=== PATIENT | female | born 1985 | race African-American/Black ===

== ENCOUNTER 2018-10-20 18:31 | Inpatient (IN) | payer MEDICAID, OTHER ==
[~2018-10-20] VITALS: Ht 165.1 cm; Wt 45.8 kg
[2018-10-20 18:51] VITALS: BP 114/71
--- NOTE | 2018-10-20 18:54 | NUR ---
WHEEL CHAIR ASSISTED TO BED 2
--- NOTE | 2018-10-20 18:57 | NUR ---
BIB FAMILY WITH C/O MID ABDOMINAL PAIN RADIATING TO LT FLANK; DENIES N/V/D . DENIES N/V/D; SKIN IS PINK/WARM/DRY; AAOX4, LUNGS CLEAR BL; HR EVEN AND REGULAR; PT DENIES ANY FEVER, CP, SOB, OR COUGH AT THIS TIME; PATIENT STATES PAIN OF 10/10 AT THIS TIME; VSS; PATIENT POSITIONED FOR COMFORT; HOB ELEVATED; BEDRAILS UP X2; BED DOWN. ER MD MADE AWARE OF PT STATUS.
--- NOTE | 2018-10-20 19:09 | NUR ---
RECIEVED REPORT FROM EBENEZER PANG.
--- NOTE | 2018-10-20 19:24 | NUR ---
Patient being evaluated by physician at bedside.
[2018-10-20] MEDS ORDERED: NACL 0.9% 1,000 ML IV ONE (20:00)
[2018-10-20] MEDS ORDERED: MORPHINE SULFATE 4 MG/ML SYR IVP ONE (20:00)
--- NOTE | 2018-10-20 20:00 | NUR ---
PT IN BED RESTING WITH EYES OPEN. ABD PAIN 8. URINE COLLECTED. DR JO INFORMED. VSS. CONTINUE TO MONITOR.
[2018-10-20 20:21] LABS: BASOPHILS % (AUTO) 0.4 % (0.0-2.0); EOSINOPHILS % (AUTO) 0.4 % (0.0-4.0); HEMATOCRIT 40.4 % (36-48); HEMOGLOBIN 13.5 g/dL (12.0-16.0); LYMPHOCYTES # (AUTO) 1.5 K/uL (2.5-16.5); MEAN CORPUSCULAR HEMOGLOBIN 30 pg (27-31); MEAN CORPUSCULAR HGB CONC 33 g/dL (33-37); MEAN CORPUSCULAR VOLUME 90.9 fL (80-94); MONOCYTES # (AUTO) 0.4 K/uL (0.8-1.0); MONOCYTES % (AUTO) 4.2 % (1.7-9.3); NEUTROPHILS # (AUTO) 6.9 K/uL (1.8-7.7); PLATELET COUNT (AUTO) 180 K/uL (140-450); RED BLOOD CELL COUNT(AUTO) 4.44 MIL/uL (4.20-5.40); RED CELL DISTRIBUTION WIDTH 12.6 % (11.6-13.7); WHITE BLOOD COUNT (AUTO) 8.8 K/uL (4.8-10.8)
[2018-10-20 20:23] LABS: APPEARANCE,URINE HAZY (CLEAR); BILIRUBIN,URINE NEGATIVE (NEGATIVE); BLOOD, URINE LARGE (NEGATIVE); COLOR,URINE YELLOW (YELLOW); LEUKOCYTE ESTERASE ,URINE NEGATIVE (NEGATIVE); NITRITE, URINE NEGATIVE (NEGATIVE); UGLUCOSE NEGATIVE (NEGATIVE)
[2018-10-20 20:27] LABS: RBC,URINE 50-80 /HPF (0-5)
[2018-10-20 20:34] LABS: ANION GAP 12.1 (8-16); CARBON DIOXIDE 25.7 mmol/L (21-32); CREATININE 0.6 mg/dL (0.6-1.3); POTASSIUM 3.8 mmol/L (3.5-5.1)
[2018-10-20 20:40] LABS: ALBUMIN 3.9 g/dL (3.4-5.0); TOTAL BILIRUBIN 0.4 mg/dL (0.0-1.0)
[2018-10-20] MEDS ORDERED: cefTRIAXone 2,000 MG in DEXTROSE 5% 100 ML IV ONE (20:55)
[2018-10-20] MEDS ORDERED: cefTRIAXone 2,000 MG VIAL ONE (21:13)
[2018-10-20] MEDS ORDERED: FAMOTIDINE 20 MG/2 ML VIAL IVP ONE (21:55)
--- NOTE | 2018-10-20 23:33 | NUR ---
REPORT GIVEN AND CARE TRANSFERED TO SLAVA PANG ROOM 119B. TRANSFERED VIA RTROY WITH VSS.
[2018-10-20 23:35] VITALS: BP 106/72
--- NOTE | 2018-10-20 23:35 | NUR ---
PT ARRIVED TO UNIT VIA WHEELCHAIR. RECEIVED REPORT FROM ER NURSE RONALD-RN AT BEDSIDE. PT AMBULATED TO BED. AOX4, ON ROOM AIR WITH IV SITE ON LEFT AC #20G. ORIENTED PT TO BEDROOM, CALL LIGHT, RESTROOM AND PT VERBALIZED UNDERSTANDING. NO S/S OF RESPIRATORY DISTRESS OR DISCOMFORT NOTED AT THIS TIME. VITAL SIGNS TAKEN AND MRSA SWAB COLLECTED. BED IN LOWEST POSITION, BED BREAKS ON, BOTH SIDE RAILS UP. BEDSIDE TABLE AND CALL LIGHT ARE WITHIN REACH. WILL CONTINUE TO MONITOR.
--- NOTE | 2018-10-21 | NUR ---
SPOKE WITH DR. SCHAFER AND WAS GIVEN ORDERS FOR DILAUDID, D5/NS IVF, LEVAQUIN, FLAGYL, AND CBC LABS. PT ON CLEAR LIQUID DIET, WITH ACTIVITY TOLERATED.
[2018-10-21] MEDS ORDERED: HYDROmorphone 1 MG/ML AMP IVP PRN ×2 (00:05→02:55)
[2018-10-21] MEDS: DEXT 5% / NACL 0.9% 1,000 ML IV SCH ×2 (00:40→10:05)
--- NOTE | 2018-10-21 00:40 | NUR ---
IVF HUNG, FIRST DOSE OF LEVAQUIN GIVEN AND DILAUDID. PT TOLERATED WELL. NO S/S OF RESPIRATORY DISTRESS OR DISCOMFORT NOTED AT THIS TIME. WILL CONTINUE TO MONITOR.
[2018-10-21] MEDS ORDERED: LEVOFLOXACIN 250 MG/D5 PREMIX 50 ML IV SCH (01:00)
[2018-10-21 01:36] LABS: BASOPHILS % (AUTO) 0.6 % (0.0-2.0); EOSINOPHILS # (AUTO) 0.1 K/uL (0-0.4); HEMATOCRIT 35.6 % (36-48); LYMPHOCYTES % (AUTO) 43.1 % (20.5-51.1); MEAN CORPUSCULAR HEMOGLOBIN 31 pg (27-31); MEAN CORPUSCULAR HGB CONC 34 g/dL (33-37); MEAN CORPUSCULAR VOLUME 91.3 fL (80-94); MONOCYTES # (AUTO) 0.4 K/uL (0.8-1.0); MONOCYTES % (AUTO) 5.3 % (1.7-9.3); NEUTROPHILS # (AUTO) 3.5 K/uL (1.8-7.7); PLATELET COUNT (AUTO) 151 K/uL (140-450); RED CELL DISTRIBUTION WIDTH 12.7 % (11.6-13.7); WHITE BLOOD COUNT (AUTO) 6.9 K/uL (4.8-10.8)
--- NOTE | 2018-10-21 02:00 | NUR ---
PT RESTING IN BED. NO S/S OF RESPIRATORY DISTRESS OR DISCOMFORT NOTED AT THIS TIME. WILL CONTINUE TO MONITOR.
--- NOTE | 2018-10-21 02:30 | NUR ---
PT C/O NAUSEA AND PAIN. SPOKE WITH DR. SCHAFER AND ORDERED ZOFRAN AND CHANGED FREQUENCY OF DILAUDID TO Q4H.
[2018-10-21] MEDS: ONDANSETRON 4 MG/2 ML VIAL IVP PRN ×2 (03:11→09:13)
--- NOTE | 2018-10-21 03:11 | NUR ---
ZOFRAN GIVEN FOR NAUSEA/VOMITING. PT TOLERATED WELL. NO S/S OF RESPIRATORY DISTRESS OR DISCOMFORT NOTED AT THIS TIME. WILL CONTINUE TO MONITOR.
--- NOTE | 2018-10-21 04:00 | NUR ---
PT RESTING IN BED. NO S/S OF RESPIRATORY DISTRESS OR DISCOMFORT NOTED AT THIS TIME. WILL CONTINUE TO MONITOR.
--- NOTE | 2018-10-21 04:14 | NUR ---
SCHEDULED MEDICATION FLAGYL GIVEN AND TOLERATED WELL. NO S/S OF RESPIRATORY DISTRESS OR DISCOMFORT NOTED AT THIS TIME. WILL CONTINUE TO MONITOR.
--- NOTE | 2018-10-21 04:39 | NUR ---
DILAUDID GIVEN FOR PAIN 06/04. PT TOLERATED WELL. NO S/S OF RESPIRATORY DISTRESS OR DISCOMFORT NOTED AT THIS TIME. WILL CONTINUE TO MONITOR.
[2018-10-21] MEDS ORDERED: metroNIDAZOLE 500 MG/NS PREMIX 100 ML IV SCH (05:00)
--- NOTE | 2018-10-21 06:00 | NUR ---
PT RESTING IN BED TALKING TO HER MOTHER ON THE PHONE. PT CONTINUES TO C/O PAIN 06/04 HOWEVER IS WAITING FOR NEXT DOES OF DILAUDID. NO NAUSEA. WILL CONTINUE TO MONITOR.
--- NOTE | 2018-10-21 07:37 | NUR ---
ENDORSED PT CARE TO DAY SHIFT NURSE SITAL-RN FOR CONTINUITY OF CARE. MNURAS
--- NOTE | 2018-10-21 07:38 | NUR ---
RECEIVED REPORT FROM PM NURSE AT BEDSIDE. PT LYING ON HER BED. PT COMPLAINING OF PAIN. PER PM NURSE, DEMETRIO NOT WORKING FOR MANAGING HER PAIN. STATES MORPHINE WORKS BETTER FOR HER. CALL ED DR SCHAFER REGARDING PT MEDS. WAITING FOR CALL BACK. HAS IV ON RT AC 20 G, IVF INFUSING WELL. PLACED CALL LIGHT WITHIN PT REACH. INFORMED HER TO USE CALL LIGHT FOR ANY HELP. WILL CONTINUE TO MONITOR PT.
[2018-10-21 08:00] VITALS: BP 93/57
[2018-10-21] MEDS ORDERED: MORPHINE SULFATE 4 MG/ML SYR IVP PRN (08:45)
--- NOTE | 2018-10-21 09:00 | NUR ---
PT SEEN BY DR DICKSON. ORDERED MORPHINE FOR PT PAIN MANAGEMENT. STATES WILL HAVE PT DONE US OF ABDOMEN. TO F/U WITH REPORT. WILL CONTINUE TO MONITOR PT.
--- NOTE | 2018-10-21 10:01 | NUR ---
PATIENT HAS BEEN SCREENED AND CATEGORIZED HIGH NUTRITION RISK. PATIENT WILL BE SEEN WITHIN 1-2 DAYS OF ADMISSION. 10/20/18-10/22/[address]
--- NOTE | 2018-10-21 14:34 | NUR ---
CM NOTE PER NIR OF DR. ASMITA PAUL[facility] PH# [phone], DR. PAUL IS NOT AVAILABLE UNTIL TOWARDS THE END OF OCTOBER SO SHE SCHEDULED PATIENT'S FOLLOW UP WITH DR. PAUL' PA, TRINA ARREGUIN (PA), WHO IS FROM THE SAME CLINIC, THE EARLIEST DATE AVAILABLE. PATIENT IS SCHEDULED FOR OUTPATIENT FF UP ON OCTOBER 25 2018 9:00 AM AT THE CLINIC IN [facility] [address]. ELIANE PANG AWARE.
[2018-10-21] MEDS ORDERED: LEVO750T2 PO ×2 (15:46→17:13)
--- NOTE | 2018-10-21 17:30 | NUR ---
PT WENT TO HOME WITH FAMILY. DC PACKET AND PRESCRIPTION GIVEN TO PT. PT STABLE AND FULL CODE AT TIME OF DISCHARGE. PT WENT HOME WILL HER BELONGINGS.
[2018-10-22] MEDS ORDERED: LEVOFLOXACIN 500 MG TAB PO SCH (09:00)
== END 2018-10-21 17:30 | disposition home or self-care (01) | DRG 241 ==
LOC: MED 18:31 → EDBEDREQSVC 22:01 → MTU 22:40
PROVIDERS: ADMIT Internal Medicine; ATTEND Internal Medicine
DX: K29.70 Gastritis, unspecified, without bleeding (principal); N12 Tubulo-interstitial nephritis, not specified as acute or chronic; N39.0 Urinary tract infection, site not specified; Z88.1 Allergy status to other antibiotic agents
CPT/HCPCS: 36415; 76830; 80053; 81001; 82150; 83690; 85025; 87040; 87081; 87086; 96361; 96365; 96375; 99285; J0696; J1170; J1956; J2270; J2405; J3490; J7042; Q0092

== ENCOUNTER 2019-04-07 13:43 | Emergency (ER) | payer OTHER ==
[~2019-04-07] VITALS: Ht 170.2 cm; Wt 47.6 kg
[~2019-04-07 13:43] MED LIST: LEVO750T2 PO
[2019-04-07 13:50] VITALS: BP 104/72
--- NOTE | 2019-04-07 13:59 | NUR ---
PT AMBULATED TO BED 04.
--- NOTE | 2019-04-07 14:08 | NUR ---
C/O LOWER ABDOMINAL PAIN & VAGINAL BLEEDING X TODAY. STATES SHE IS , LMP 01/27/2019. PT REPORTS GUSH OF BLOOD, SMALL CLOT, AND ABDOMINAL CRAMPING STARTING THIS MORNING. PAIN 7/10. DENIES FEVER, CHILLS, N/V/D. .
--- NOTE | 2019-04-07 15:03 | NUR ---
US AT BEDSIDE.
[2019-04-07 15:53] LABS: BASOPHILS % (AUTO) 0.6 % (0.0-2.0); EOSINOPHILS # (AUTO) 0.1 K/uL (0-0.4); EOSINOPHILS % (AUTO) 1.9 % (0.0-4.0); HEMATOCRIT 37.4 % (36-48); HEMOGLOBIN 12.7 g/dL (12.0-16.0); LYMPHOCYTES # (AUTO) 2.4 K/uL (2.5-16.5); LYMPHOCYTES % (AUTO) 35.7 % (20.5-51.1); MEAN CORPUSCULAR HEMOGLOBIN 31 pg (27-31); MEAN CORPUSCULAR HGB CONC 34 g/dL (33-37); MEAN CORPUSCULAR VOLUME 90.9 fL (80-94); MONOCYTES # (AUTO) 0.4 K/uL (0.8-1.0); MONOCYTES % (AUTO) 5.9 % (1.7-9.3); NEUTROPHILS # (AUTO) 3.7 K/uL (1.8-7.7); NEUTROPHILS % (AUTO) 55.9 % (42.2-75.2); PLATELET COUNT (AUTO) 191 K/uL (140-450); RED BLOOD CELL COUNT(AUTO) 4.11 MIL/uL (4.20-5.40); RED CELL DISTRIBUTION WIDTH 13.6 % (11.6-13.7); WHITE BLOOD COUNT (AUTO) 6.7 K/uL (4.8-10.8)
[2019-04-07 17:12] VITALS: BP 116/72
--- NOTE | 2019-04-07 17:12 | NUR ---
Patient discharged with v/s stable. Written and verbal after care instructions given and explained. Patient verbalized understanding. Ambulatory with steady gait. All questions addressed prior to discharge. Advised to follow up with PMD.
== END 2019-04-07 17:16 | disposition home or self-care (01) ==
LOC: MED 13:43
DX: O20.0 Threatened abortion (principal); O21.8 Other vomiting complicating pregnancy; Z3A.09 9 weeks gestation of pregnancy; Z88.1 Allergy status to other antibiotic agents; Z79.899 Other long term (current) drug therapy
CPT/HCPCS: 36415; 76817; 81002; 81025; 84702; 85025; 86900; 86901; 99284; Q0092

== ENCOUNTER 2019-04-29 12:17 | Emergency (ER) | payer OTHER ==
[~2019-04-29] VITALS: Ht 170.2 cm; Wt 47.6 kg
[2019-04-29 12:30] VITALS: BP 97/49
--- NOTE | 2019-04-29 12:42 | NUR ---
PT W/C ASSISTANCE TO BED 2
--- NOTE | 2019-04-29 12:42 | NUR ---
BIB C/O N/V/D, GENERALIZED WEAKNESS, LOWER ABDOMINAL PAIN & LOWER BACK PAIN 06/04 X 1 WEEK. PT STATED 9 WEEKS 3 DAYS. LMP 01/27/19. SEEN HERE 04/07/19 FOR THREATHENED MISCARRIGE & UTI. PER PT, ABT, MACROBID, WAS PRESCRIBED, BUT UNABLE TO TAKE IT D/T VOMITING. PT STATES BLADDER SPASMS AFTER URINATING. ER TO EVALUATE PT.
[2019-04-29] MEDS ORDERED: NACL 0.9% 1,000 ML IV SCH (13:01)
--- NOTE | 2019-04-29 13:02 | NUR ---
DR CORONEL AT BEDSIDE FOR PT EVAL
[2019-04-29] MEDS ORDERED: ACETAMINOPHEN 325 MG TAB PO ONE (13:05)
[2019-04-29] MEDS ORDERED: ONDANSETRON 4 MG/2 ML VIAL IVP ONE ×2 (13:05→16:20)
[2019-04-29 13:19] LABS: BASOPHILS % (AUTO) 0.2 % (0.0-2.0); EOSINOPHILS % (AUTO) 0.3 % (0.0-4.0); HEMATOCRIT 37.4 % (36-48); HEMOGLOBIN 12.7 g/dL (12.0-16.0); LYMPHOCYTES # (AUTO) 1.4 K/uL (2.5-16.5); MEAN CORPUSCULAR HEMOGLOBIN 31 pg (27-31); MEAN CORPUSCULAR HGB CONC 34 g/dL (33-37); MEAN CORPUSCULAR VOLUME 90.2 fL (80-94); MONOCYTES # (AUTO) 0.4 K/uL (0.8-1.0); MONOCYTES % (AUTO) 4.2 % (1.7-9.3); NEUTROPHILS # (AUTO) 7.3 K/uL (1.8-7.7); NEUTROPHILS % (AUTO) 80.3 % (42.2-75.2); PLATELET COUNT (AUTO) 175 K/uL (140-450); RED BLOOD CELL COUNT(AUTO) 4.14 MIL/uL (4.20-5.40)
[2019-04-29 13:31] LABS: ANION GAP 12.8 (8-16); CARBON DIOXIDE 22.9 mmol/L (21-32); CREATININE 0.5 mg/dL (0.6-1.3); POTASSIUM 3.7 mmol/L (3.5-5.1)
[2019-04-29 13:37] LABS: ALBUMIN 3.4 g/dL (3.4-5.0); TOTAL BILIRUBIN 0.4 mg/dL (0.0-1.0)
--- NOTE | 2019-04-29 14:20 | NUR ---
PT LAYING IN BED, IVF INFUSING WELL, PT STATES SHE STILL FEELS "SICK" BUT FEELS LESS NAUSEA. VSS.
[2019-04-29 14:35] LABS: APPEARANCE,URINE CLEAR (CLEAR); BILIRUBIN,URINE 1+ (NEGATIVE); BLOOD, URINE NEGATIVE (NEGATIVE); COLOR,URINE YELLOW (YELLOW); LEUKOCYTE ESTERASE ,URINE NEGATIVE (NEGATIVE); NITRITE, URINE NEGATIVE (NEGATIVE); UGLUCOSE NEGATIVE (NEGATIVE)
--- NOTE | 2019-04-29 14:40 | NUR ---
MANAGER DIALYSIS AT BEDSIDE
[2019-04-29 14:46] LABS: RBC,URINE 0-5 /HPF (0-5); WBC,URINE 0-5 /HPF (0-5)
[2019-04-29] MEDS ORDERED: NACL 0.9% 1,000 ML IV ONE (16:20)
--- NOTE | 2019-04-29 17:30 | NUR ---
DR CORONEL AT BEDSIDE FOR PT RE EVALUATION
[2019-04-29 17:42] VITALS: BP 104/62
--- NOTE | 2019-04-29 17:42 | NUR ---
Patient discharged with v/s stable. Written and verbal after care instructions given and explained. Patient alert, oriented and verbalized understanding of instructions. Ambulatory with steady gait. All questions addressed prior to discharge. ID band removed. Patient advised to follow up with PMD. Rx of Diclegis given. Patient educated on indication of medication including possible reaction and side effects. Opportunity to ask questions provided and answered.
== END 2019-04-29 17:42 | disposition home or self-care (01) ==
LOC: MED 12:17
DX: O21.0 Mild hyperemesis gravidarum (principal); Z3A.09 9 weeks gestation of pregnancy; Z88.1 Allergy status to other antibiotic agents; Z79.899 Other long term (current) drug therapy
CPT/HCPCS: 36415; 76801; 80053; 81001; 81025; 83690; 84702; 85025; 87086; 96361; 96374; 96376; 99284; J2405; J7030; Q0092

== ENCOUNTER 2019-05-26 16:07 | Emergency (ER) | payer OTHER ==
[~2019-05-26] VITALS: Ht 170.2 cm; Wt 46.9 kg
[2019-05-26 16:18] VITALS: BP 105/74
--- NOTE | 2019-05-26 16:20 | NUR ---
PT WALKED TO BED 3 WITH STEADY GAIT. CO BUG BITE ON RIGHT HAND. PT WAS .
[2019-05-26 17:26] VITALS: BP 97/50
--- NOTE | 2019-05-26 17:26 | NUR ---
Patient discharged with v/s stable. Written and verbal after care instructions given and explained. Patient alert, oriented and verbalized understanding of instructions. Ambulatory with steady gait. All questions addressed prior to discharge. ID band removed. Patient advised to follow up with PMD. Rx of CORTIZONE, CLINDAMYCIN, BENADRYL given. Patient educated on indication of medication including possible reaction and side effects. Opportunity to ask questions provided and answered.
== END 2019-05-26 17:26 | disposition home or self-care (01) ==
LOC: MED 16:07
DX: O98.811 Other maternal infectious and parasitic diseases complicating pregnancy, first trimester (principal); L03.113 Cellulitis of right upper limb; Z3A.13 13 weeks gestation of pregnancy; Z88.1 Allergy status to other antibiotic agents; Z79.899 Other long term (current) drug therapy
CPT/HCPCS: 99283